=== PATIENT | female | born 2000 | race African-American/Black ===

== ENCOUNTER 2023-03-01 21:21 | Emergency (ER) | payer OTHER, SELFPAY ==
[2023-03-01 21:22] VITALS: BP 160/120; PULSE 100; RESP 16; TEMP 36.4; O2SAT 100; BMI 35.7
--- NOTE | 2023-03-01 21:54 | CT_ITS ---
INDICATION: Kidney Stone. Right upper quadrant pain, nausea and vomiting. EXAMINATION: CT ABDOMEN AND PELVIS WITHOUT CONTRAST TECHNIQUE: Helically acquired images were obtained of the abdomen and pelvis without IV contrast. 2-D reconstructions reviewed. A radiation dose optimization technique was used for this scan. IV Contrast dosage and agent: None. Oral contrast: None. COMPARISON: None. FINDINGS: LOWER CHEST: Mild basilar atelectatic changes. Borderline cardiomegaly. LIVER: Homogeneous. No discrete mass. GALLBLADDER AND BILIARY TREE: Several small calcified stones within gallbladder lumen and gallbladder neck. No significant biliary ductal dilation. PANCREAS: No discrete mass or peripancreatic edema. SPLEEN: Normal size without discrete mass. ADRENAL GLANDS: Unremarkable. KIDNEYS AND URETERS: Normal renal size and position. No perinephric edema or hydronephrosis. No discrete mass. No tract stones identified. PERITONEUM: No significant free peritoneal fluid. No free air detected. RETROPERITONEUM: No retroperitoneal mass or pathologic fluid collection. BOWEL: Normal appendix medial to cecum draped over right external iliac vessels. No bowel obstruction or significant bowel thickening. No focal inflammatory change. LYMPH NODES: No enlarged mesenteric or retroperitoneal lymph nodes. VESSELS: No acute findings. No abdominal aortic aneurysm. URINARY BLADDER: Circumferential urinary bladder wall thickening versus underdistention. REPRODUCTIVE ORGANS: Bilateral adnexal lesions containing macroscopic fat, soft tissue attenuation and punctate calcifications compatible with ovarian dermoids. Right ovarian dermoid measures 5.2 cm diameter and left ovarian dermoid 3.7 cm diameter. ABDOMINAL WALL: No acute findings or significant hernia defect. BONES: Intact with no suspicious osseous lesion. CT/Abdomen/Pelvis without Cont IMPRESSION: 1. Cholelithiasis. Recommend further evaluation with gallbladder ultrasound. 2. Bilateral ovarian dermoids, right larger than left. Recommend gynecologic quadrant follow-up for further management. 3. Borderline cardiomegaly. 4. Mild urinary bladder wall thickening versus underdistention. Correlate clinically for signs of cystitis. Electronically Signed: Antonio Lee MD at 22:52 EDT ,
[2023-03-01 22:03] LABS: Absolute Lymphocyte Count 4.56 X10^3/uL (0.83-4.51); Absolute Neutrophil Count 5.4 X10^3/uL (2.0-7.7); Basophil# 0.07 X10^3/uL; Basophil% 0.6 % (0-1); Eosinophil# 0.12 X10^3/uL; Hematocrit 27.2 % (37-47); Lymphocyte # 4.56 X10^3/ul (0.83-4.51); Lymphocyte % 39.5 % (19-41); Mean Corp Hgb Conc 33.1 g/dL (32-36); Mean Corpuscular Hgb 20.4 pg (27.0-32.0); Mean Corpuscular Volume 61.7 fL (81-99); Mean Platelet Vol. 9.3 fl (6.2-12.0); Monocyte# 1.39 X10^3/uL; NRBC Flagged by Analyzer 1.6 % (0-5); Neutrophil # 5.38 X10^3/uL (2.7-7.7); Neutrophil % 46.6 % (47-70); POSITIVE MORPHOLOGY YES; Platelet Count 458 K/mm3 (150-450); RBC Distribution Width CV 20.2 % (11.6-14.6); RBC Distribution Width SD 43.6 fl (35.1-43.9); Red Blood Count 4.41 M/mm3 (4.2-5.4); White Blood Count 11.6 K/mm3 (4.4-11.0)
[2023-03-01 22:04] LABS: Differential Indicated SCAN CRITERIA MET
[2023-03-01] MEDS: Ondansetron 4 MG/2 ML Vial IV (22:05)
[2023-03-01] MEDS: Ketorolac 30 MG/ML Syringe IV (22:05)
[2023-03-01 22:14] LABS: Internal QC Validated? YES +Cl - CLEAR BKGD; Pregnancy, Serum, hCG Quali. NEGATIVE Negative
[2023-03-01 22:15] LABS: Bacteria 0 SEEN /hpf (None Seen); Mucous, Urine 0 SEEN /hpf (<or=2+); Red Blood Cells-Urine 0 SEEN /hpf (0-5); White Blood Cells 0 SEEN /hpf (0-5)
--- NOTE | 2023-03-01 22:15 | EDS_ITS ---
HPI History of Present Illness Chief Complaint: Flank Pain Informant: patient Narrative Narrative: 22-year-old female presenting to the emergency department chief complaint of right flank pain. Patient states that last night around midnight she developed the symptoms right flank pain. States she took some Tylenol and went away and she went to bed. She woke this morning feeling okay and she went to classes. This evening after dinner she developed the symptoms again described as sharp and stabbing and constant. She had emesis [facility]. They were concerned about a kidney stone and sent her to emergency. Patient denies any fevers. She denies any urinary symptoms such as hematuria or frequency or dysuria. She no abdominal radiation of the pain. She states nothing seems to make it better or worse. No personal history of kidney stones. She states she has had a similar pain like this in the past and has gone undiagnosed but has not had that pain for several years. PFSH PFS Medical History Cochlear hearing loss PCOS (polycystic ovarian syndrome) Home Medications Secure 1 tab PO DAILY 03/01/23 [History Last Taken Unknown] hydrocodone-acetaminophen 5-325mg 5mg-325mg 1 tab PO Q6H PRN PRN Pain 3 days #12 TABLETS 03/01/23 [Rx Last Taken Unknown] ondansetron 4 mg disintegrating tablet 4 mg PO Q8H PRN PRN Nausea #10 tabs 03/01/23 [Rx Last Taken Unknown] Allergy/AdvReac Type Severity Reaction Status Date / Time No Known Allergies Allergy Verified 03/01/23 21:26 Family History no significant family his Surgical History no surgical history Social History housing: other current occupational status: student Smoking Status: Never smoker ROS ROS ED Constitutional Constitutional ED: Denies chills or weight loss Eyes Eyes: Denies change in vision or diplopia ENT ENT ED: Denies ear pain, rhinorrhea or sore throat Cardiovascular Cardiovascular: Denies chest pain, orthopnea, palpitations or racing heartbeat Respiratory/Chest Respiratory/Chest: Denies cough, dyspnea or orthopnea Gastrointestinal Gastrointestinal: Reports nausea and vomiting; Denies abdominal pain or diarrhea Genitourinary Genitourinary ED: Reports other Details: Right flank pain ; Denies dysuria, hematuria or urinary frequency Musculoskeletal Musculoskeletal: Denies arthralgias or myalgias Integumentary Denies abscess or rash Neurologic Neurologic: Denies headache(s) or weakness Psychiatric Psychiatric: Denies anxiety, depression, suicidal ideation or suicidal thoughts Endocrine Endocrinology: Denies polydipsia, polyphagia or polyuria Allergic/Immunologic Allergic/Immunologic ED: Denies mouth swelling, tongue swelling or urticaria EXAM Physical Exam Const Vital Signs: 03/01/23 21:22 Temperature 97.6 F L Temperature Source Temporal Pulse Rate 100 Respiratory Rate 16 Blood Pressure 160/120 H Blood Pressure Mean 133 Pulse Ox 100 Oxygen Delivery Method Room Air Positive well nourished, well developed and obese General Appearance ED: well developed Nutritional Appearance: obese HEENT Reports normocephalic, head/scalp atraumatic and moist mucous membranes Eyes PERRL and EOMs intact bilaterally Neck no lymphadenopathy, supple and no JVD Resp normal respiratory effort and clear to auscultation bilaterally Cardio regular rate, regular rhythm and no murmurs GI normal to inspection, nondistended, normoactive bowel sounds and non-tender Palpation: soft Back/Spine no CVA tenderness and normal ROM Extremity normal to inspection General Extremety ED: Negative for edema General Extremity: Negative for edema Neuro oriented x3 and CN's II-XII intact bilaterally Sensorium / Orientation: alert Motor Exam: strength 5/5 throughout Psych mental status grossly normal Mood & Affect: Negative for depressed or tearful Skin no rashes or lesions noted and no wounds MDM MDM MDM Narrative Medical decision making narrative: White count returns at 11.6. Liver lipase negative. test is negative. Urinalysis is negative. CT abdomen pelvis was obtained which demonstrates some cholelithiasis but no kidney stone or colitis noted. It was also noticed that the patient had cyst on ovaries. While the patient does not have any pelvic pain these findings were relayed to her and we recommend gynecologic follow-up. It is noted that she has a history of PCOS and is currently on oral contraceptive. I performed a bedside ultrasound which shows some gallstones near the vertex of the gallbladder. I do not appreciate any pericholecystic fluid. I do not see any gallstones in the neck of the gallbladder like was seen on the CT. She is not having any pain at this time. It is possible that the stones moved and that is explaining why she does not have the current pain. I think the patient should follow-up with general surgery. She also needs to follow-up with gynecology. Lab Data Attestation: I reviewed the patient's lab results. Labs: Laboratory Results - last 24 hr 03/01/23 03/01/23 21:41 22:07 WBC 11.6 H RBC 4.41 Hgb 9.0 L Hct 27.2 L MCV 61.7 L MCH 20.4 L MCHC 33.1 RDW Std Deviation 43.6 RDW Coeff of Ken 20.2 H Plt Count 458 H MPV 9.3 Immature Gran % (Auto) 0.300 Neut % (Auto) 46.6 L Lymph % (Auto) 39.5 [place] % (Auto) 12.0 H Eos % (Auto) 1.0 Baso % (Auto) 0.6 Absolute Neuts (auto) 5.4 Absolute Lymphs (auto) 4.56 H Nucleated RBC % 1.6 Differential Comment SCANNED Polychromasia RARE Anisocytosis 2+ Microcytosis 1+ Macrocytosis 1+ Target Cells 4+ Sodium 139 Potassium 3.3 L Chloride 107 Carbon Dioxide 26.0 Anion Gap 6 BUN 7 Creatinine 0.77 Estim Creat Clear Calc 104.87 Est GFR (MDRD) Af Amer 122 Est GFR (MDRD) Non-Af 101 BUN/Creatinine Ratio 9.1 L Glucose 97 Calcium 8.8 Total Bilirubin 0.60 Direct Bilirubin 0.19 AST 18 ALT 29 Alkaline Phosphatase 74 Total Protein 8.4 H Albumin 3.8 Globulin 4.6 H Lipase 28 Serum , Qual NEGATIVE Urine Color Yellow Urine Clarity Sl. Cloudy Urine pH 7.0 Ur Specific [place] 1.005 Urine Protein Negative Urine Glucose (UA) Normal Urine Ketones Negative Urine Occult Blood Negative Urine Nitrite Negative Urine Bilirubin Negative Urine Urobilinogen Normal Ur Leukocyte Esterase Negative Urine RBC 0 SEEN Urine WBC 0 SEEN Ur Squamous Epith Cells 0-5 SEEN Urine Bacteria 0 SEEN Urine Mucus 0 SEEN Radiography Diagnostic Testing: Clinical Impression(s) from Imaging Studies Abdomen/Pelvis CT 03/01/23 21:54 IMPRESSION: 1. Cholelithiasis. Recommend further evaluation with gallbladder ultrasound. 2. Bilateral ovarian dermoids, right larger than left. Recommend gynecologic quadrant follow-up for further management. 3. Borderline cardiomegaly. 4. Mild urinary bladder wall thickening versus underdistention. Correlate clinically for signs of cystitis. Electronically Signed: Antonio Lee MD at 22:52 EDT , Differential Diagnosis Abdominal Pain: Appendicitis, Cholecystitis, Pancreatitis, Bowel obstruction and UTI Discharge Plan Triage Chief Complaint: Flank Pain ED Provider: Sarbjit Kellogg Dx/Rx/DC Orders Clinical Impression: Vomiting, Cholelithiasis, Biliary colic, PCOS (polycystic ovarian syndrome) Instructions: ED Gallstones with Biliary Colic Prescriptions: New hydrocodone-acetaminophen [hydrocodone-acetaminophen] 5-325 mg tablet 1 tab PO Q6H PRN PRN (Reason: Pain) 3 Days Qty: 12 0RF ondansetron [ondansetron] 4 mg tablet,disintegrating 4 mg PO Q8H PRN PRN (Reason: Nausea) Qty: 10 0RF No Action Secure 1 tab PO DAILY Rx Instructions: Oral control that the patient gets from her home country. Primary Care Provider: Vamsi Alvarado Referrals: Vamsi Alvarado MD [Primary Care Provider] - As Needed Alton Kinsey MD [Med Staff - Active Staff] - As Needed (For gynecology care.) Brigid Carrillo MD [Med Staff - Active Staff] - As soon as possible (Please call to obtain surgical evaluation for ureteral stones) Disposition Disposition: Home, Self Care
[2023-03-01 22:17] LABS: Color, Urine Yellow (Yellow); Glucose, Dipstick Normal (Normal); Ketone-Dipstick Negative (Negative); Leukocyte Esterase-Dipstick Negative /ul (Negative); Nitrite-Dipstick Negative (Negative); Occult Blood-Urine Negative /ul (Negative); Protein-Dipstick Negative (Negative); Specific Gravity, Urine 1.005 (1.002-1.030); Urine Bilirubin Dipstick Negative (Negative); Urine Clarity Sl. Cloudy (Clear); Urine Urobilinogen Normal (Normal)
[2023-03-01 22:17] LABS: Anion Gap 6 (5-15); BUN 7 mg/dL (7-18); BUN/Creat Ratio 9.1 RATIO (10-20); Calcium,Total 8.8 mg/dL (8.5-10.1); Chloride 107 mmol/L (98-107); Creatinine, Serum 0.77 mg/dL (0.55-1.02); EST Glomerular Filtration Rate 101 mL/min (>60); Est Glom Filt Rate - Afr Amer 122 mL/min (>60); Estimated Creatinine Clearance 104.87 ml/min; Glucose 97 mg/dL (74-106); Potassium 3.3 mmol/L (3.5-5.1); Sodium Level 139 mmol/L (136-145)
[2023-03-01 22:23] LABS: Squamous Epithelial Cells - UA 0-5 SEEN /hpf (5-10)
[2023-03-01 22:33] LABS: Anisocytosis 2+; Differential Comment SCANNED
[2023-03-01 22:34] LABS: Target Cells 4+
[2023-03-01 22:35] LABS: Macrocytosis 1+; Microcytosis 1+
[2023-03-01 22:36] LABS: Polychromasia RARE
[2023-03-01 22:55] LABS: Lipase 28 U/L (13-75)
[2023-03-01 23:05] LABS: AST(SGOT) 18 U/L (15-37); Alanine Aminotransfer ALT/SGPT 29 U/L (13-56); Albumin, Serum 3.8 g/dL (3.2-5.0); Alkaline Phosphatase 74 U/L (45-117); Bilirubin, Direct 0.19 mg/dL (0.00-0.30); Globulin 4.6 g/dL (2.2-4.2); Protein, Total 8.4 g/dL (6.4-8.2)
[2023-03-01 23:14] VITALS: RESP 16
== END 2023-03-01 23:15 | disposition home or self-care (01) ==
PROVIDERS: Emergency Provider Emergency Medicine; PCP Family Medicine; Visit Provider Emergency Medicine
DX: K80.70 Calculus of gallbladder and bile duct without cholecystitis without obstruction (principal); E28.2 Polycystic ovarian syndrome; R11.10 Vomiting, unspecified; K80.20 Calculus of gallbladder without cholecystitis without obstruction; K80.50 Calculus of bile duct without cholangitis or cholecystitis without obstruction
CPT/HCPCS: 74176; 80048; 80076; 81001; 83690; 84703; 85025; 96374; 96375; 99283; A4216; J2405

== ENCOUNTER 2023-07-21 23:53 | Inpatient (IN) | payer OTHER, SELFPAY ==
[2023-07-21 23:54] VITALS: BP 128/90; PULSE 78; RESP 16; TEMP 36.9; O2SAT 98; BMI 35.1
[2023-07-22] VITALS (16 sets, daily range): BP systolic 115–134; BP diastolic 69–90; PULSE 64–106; RESP 16–20; TEMP 36.4–37.2; O2SAT 93–100; BMI 34.9
--- NOTE | 2023-07-22 00:10 | CT_ITS ---
INDICATION: RUQ Pain/Flank Pain. RUQ PAIN X 9 DAYS,ELEVATED WBC,PREG TEST WAS NEG,PT SEEN FOR SAME 03-01-23 AND DX WITH GALLSTONES AND UTERINE FIBROIDS COMPARISON: 03/01/[address] IV Contrast dosage and agent: 99 cc [id number]-370 IV. RADIATION DOSAGE (If Supplied By Facility): CTDIvol/DLP = 17.58 / 1140.58 mGy / mGycm A radiation dose optimization technique was used for this scan. FINDINGS: Contrast enhanced serial CT axial images through the abdomen and pelvis with coronal and sagittal reformatted series. PANCREAS: No peripancreatic fat stranding. BOWEL/MESENTERY: No dilated bowel loops. No significant free fluid. No free air. LIVER/STOMACH: Dilated common bile duct with intrahepatic biliary ductal dilatation and multiple apparently obstructing calculi within the distal common bile duct measuring up to 5 mm. Additional 4 mm calculus within the mid common bile duct. GALLBLADDER: Cholelithiasis at the gallbladder fundus again noted without pericholecystic fat stranding. APPENDIX: Normal caliber gas containing appendix. UTERUS/ADNEXA: Bilateral adnexal masses containing macroscopic fat and punctate calcifications, measuring up to 6 cm on the right and 5 cm on the left, most consistent with bilateral ovarian dermoids. URINARY COLLECTING SYSTEM/ KIDNEYS: No obstructing ureteral calculus. No significant renal parenchymal abnormality. LUNG BASES: Posteromedial right lung base subpleural scarring versus atelectasis again noted. BONES: Unremarkable for age. CT/Abdomen/Pelvis W IV Cont ONLY IMPRESSION: Apparent biliary obstruction secondary to multiple calculi within the mid and distal common bile duct, new from 5 months prior. Cholelithiasis at the gallbladder fundus again noted without pericholecystic fat stranding. Again noted apparent bilateral ovarian and adenoids measuring up to 6 cm on the right. Electronically Signed: Jaun Valle MD at 1:57 EST ,
--- NOTE | 2023-07-22 00:11 | EDS_ITS ---
HPI History of Present Illness Chief Complaint: Flank Pain Informant: patient Narrative Narrative: 23-year-old female presenting to the emergency room with a stated chief complaint of right flank pain (patient points to the lower mid axillary line on the right ribs and upper abdomen as the area that hurts) patient states it has been hurting for the past 9 days. She has been taking Tylenol which has been helping. Today she took some Indian that she had leftover from February 2023 when she was seen in the emergency department for right flank pain. At that time I saw her and she was diagnosed with biliary colic/gallstones and was advised to follow-up with surgery. She did not follow-up with surgery. She notes no vomiting today but has had nausea intermittently in the past week. She denies any urinary symptoms. No fever. No rashes. [facility] Medical History (Updated 07/22/23 @ 03:31 by Lorie To) Cochlear hearing loss PCOS (polycystic ovarian syndrome) Sickle cell anemia Home Medications Secure 1 tab PO DAILY 03/01/23 [History Last Taken Unknown] hydrocodone-acetaminophen 5-325mg 5mg-325mg 1 tab PO Q6H PRN PRN Pain 3 days #12 TABLETS 03/01/23 [Rx Last Taken Unknown] ondansetron 4 mg disintegrating tablet 4 mg PO Q8H PRN PRN Nausea #10 tabs 03/01/23 [Rx Last Taken Unknown] Allergy/AdvReac Type Severity Reaction Status Date / Time No Known Allergies Allergy Verified 07/21/23 23:56 Social History housing: other current occupational status: student Smoking Status: Never smoker ROS ROS ED Constitutional Constitutional ED: Denies chills, fever(s) or weight loss Eyes Eyes: Denies change in vision or diplopia ENT ENT ED: Denies ear pain, rhinorrhea or sore throat Cardiovascular Cardiovascular: Denies chest pain, orthopnea, palpitations or racing heartbeat Respiratory/Chest Respiratory/Chest: Denies cough, dyspnea or orthopnea Gastrointestinal Gastrointestinal: Reports abdominal pain and nausea; Denies diarrhea or vomiting Genitourinary Genitourinary ED: Denies dysuria, hematuria or urinary frequency Musculoskeletal Musculoskeletal: Reports other Details: Patient points to the right lower mid axillary line the lower chest as the area that hurts ; Denies arthralgias, back pain, myalgias or neck pain Integumentary Denies abscess or rash Neurologic Neurologic: Denies headache(s) or weakness Psychiatric Psychiatric: Denies anxiety, depression, suicidal ideation or suicidal thoughts Endocrine Endocrinology: Denies polydipsia, polyphagia or polyuria Allergic/Immunologic Allergic/Immunologic ED: Denies mouth swelling, tongue swelling or urticaria EXAM Physical Exam Const Vital Signs: 07/21/23 23:54 07/22/23 03:28 07/22/23 03:33 Temperature 98.4 F Temperature Source Temporal Pulse Rate 78 89 Respiratory Rate 16 16 16 Blood Pressure 128/90 H 132/85 H Blood Pressure Mean 102 100 Pulse Ox 98 99 Oxygen Delivery Method Room Air Room Air Positive well nourished, well developed and obese General Appearance ED: well developed Nutritional Appearance: obese HEENT Reports normocephalic, head/scalp atraumatic and moist mucous membranes Eyes PERRL and EOMs intact bilaterally Neck no lymphadenopathy, supple and no JVD Resp normal respiratory effort and clear to auscultation bilaterally Cardio regular rate, regular rhythm and no murmurs GI no masses; Negative for hepatosplenomegaly Inspection: Negative for abdominal distention Auscultation: normoactive bowel sounds Palpation: soft and tender RUQ; Negative for guarding or rebound tenderness present Back/Spine no CVA tenderness and normal ROM Extremity normal to inspection General Extremety ED: Negative for edema General Extremity: Negative for edema Neuro oriented x3 and CN's II-XII intact bilaterally Sensorium / Orientation: alert Motor Exam: strength 5/5 throughout Psych mental status grossly normal Mood & Affect: Negative for depressed or tearful Skin no rashes or lesions noted and no wounds MDM MDM MDM Narrative Medical decision making narrative: White count 11.2 with a hemoglobin 12.5 platelet count of 532. Total bilirubin elevated 1.9 with an AST of 85 ALT 114 alk phos of 130 lipase normal at 24. test is negative urinalysis is negative. At this hour I do not have gallbladder ultrasound readily available. I did do a CT of the pelvis and clearly shows a stone or 2 in the bile duct. There is some pericholecystic fluid. She is tender to palpation in the right upper quadrant. She was administered Zofran morphine and Zosyn. I spoke with surgery and gastroenterology. Plan will be to keep her in the department and obtain a formal gallbladder ultrasound and admit for surgery. Maintenance fluids ordered. NPO status discussed with nursing. History & Record Review Discussion w/independent historian: Patient Additional record(s) reviewed:: Prior ED visit and Prior labs Lab Data Attestation: I reviewed the patient's lab results. Labs: Laboratory Results - last 24 hr 07/22/23 07/22/23 00:19 00:20 WBC 11.2 H RBC 4.15 L Hgb 10.5 L Hct 29.6 L MCV 71.3 L MCH 25.3 L MCHC 35.5 RDW Std Deviation 44.3 H RDW Coeff of Ken 17.4 H Plt Count 532 H MPV 9.2 Immature Gran % (Auto) 0.400 Neut % (Auto) 60.7 Lymph % (Auto) 24.6 [place] % (Auto) 12.3 H Eos % (Auto) 1.5 Baso % (Auto) 0.5 Absolute Neuts (auto) 6.8 Absolute Lymphs (auto) 2.77 Nucleated RBC % 1.4 Sodium 139 Potassium 3.9 Chloride 109 H Carbon Dioxide 25.0 Anion Gap 5 BUN 7 Creatinine 0.85 Estim Creat Clear Calc 119.82 Est GFR (MDRD) Af Amer 108 Est GFR (MDRD) Non-Af 89 BUN/Creatinine Ratio 8.2 L Glucose 122 H Calcium 8.8 Total Bilirubin 1.90 H Direct Bilirubin 0.56 H AST 85 H ALT 114 H Alkaline Phosphatase 130 H Total Protein 8.2 Albumin 3.8 Globulin 4.4 H Lipase 24 Serum , Qual NEGATIVE Urine Color Yellow Urine Clarity Clear Urine pH 7.0 Ur Specific [place] 1.010 Urine Protein Negative Urine Glucose (UA) Normal Urine Ketones Negative Urine Occult Blood 10 H Urine Nitrite Negative Urine Bilirubin Negative Urine Urobilinogen 1 H Ur Leukocyte Esterase Negative Urine RBC 0 SEEN Urine WBC 0 SEEN Ur Squamous Epith Cells 0 SEEN Urine Bacteria 0 SEEN Urine Mucus 0 SEEN Radiography Diagnostic Testing: Clinical Impression(s) from Imaging Studies Abdomen/Pelvis CT 07/22/23 00:10 IMPRESSION: Apparent biliary obstruction secondary to multiple calculi within the mid and distal common bile duct, new from 5 months prior. Cholelithiasis at the gallbladder fundus again noted without pericholecystic fat stranding. Again noted apparent bilateral ovarian and adenoids measuring up to 6 cm on the right. Electronically Signed: Jaun Valle MD at 1:57 EST , Management Discussion w/another healthcare provider: Outside Production Inspector (Surgery (Dr. Hemphill) GI (Dr. Gonzales)) Discharge Plan Dx/Rx/DC Orders Clinical Impression: Abdominal pain, acute, Cholelithiasis with acute cholecystitis with biliary obstruction Disposition Disposition: Acute Care [facility]
[2023-07-22 00:23] LABS: Bacteria 0 SEEN /hpf (None Seen); Mucous, Urine 0 SEEN /hpf (<or=2+); Red Blood Cells-Urine 0 SEEN /hpf (0-5); Squamous Epithelial Cells - UA 0 SEEN /hpf (5-10); White Blood Cells 0 SEEN /hpf (0-5)
[2023-07-22 00:28] LABS: Absolute Lymphocyte Count 2.77 X10^3/uL (0.83-4.51); Absolute Neutrophil Count 6.8 X10^3/uL (2.0-7.7); Basophil# 0.06 X10^3/uL; Basophil% 0.5 % (0-1); Eosinophil# 0.17 X10^3/uL; Eosinophils% 1.5 % (0-5); Hematocrit 29.6 % (37-47); Hemoglobin 10.5 g/dL (12.0-15.0); Lymphocyte # 2.77 X10^3/ul (0.83-4.51); Lymphocyte % 24.6 % (19-41); Mean Corp Hgb Conc 35.5 g/dL (32-36); Mean Corpuscular Hgb 25.3 pg (27.0-32.0); Mean Corpuscular Volume 71.3 fL (81-99); Mean Platelet Vol. 9.2 fl (6.2-12.0); Monocyte# 1.38 X10^3/uL; Monocyte% 12.3 % (0-10); NRBC Flagged by Analyzer 1.4 % (0-5); Neutrophil # 6.82 X10^3/uL (2.7-7.7); Neutrophil % 60.7 % (47-70); Platelet Count 532 K/mm3 (150-450); RBC Distribution Width CV 17.4 % (11.6-14.6); RBC Distribution Width SD 44.3 fl (35.1-43.9); Red Blood Count 4.15 M/mm3 (4.2-5.4); White Blood Count 11.2 K/mm3 (4.4-11.0)
[2023-07-22 00:29] LABS: Color, Urine Yellow (Yellow); Glucose, Dipstick Normal (Normal); Ketone-Dipstick Negative (Negative); Leukocyte Esterase-Dipstick Negative /ul (Negative); Nitrite-Dipstick Negative (Negative); Occult Blood-Urine 10 /ul (Negative); Protein-Dipstick Negative (Negative); Urine Bilirubin Dipstick Negative (Negative); Urine Clarity Clear (Clear); Urine Urobilinogen 1 mg/dl (Normal)
[2023-07-22] MEDS: Ondansetron 4 MG/2 ML Vial IV (00:34)
[2023-07-22] MEDS: Morphine 4 MG/ML Syringe IV (00:35)
[2023-07-22 00:42] LABS: Internal QC Validated? YES +Cl - CLEAR BKGD; Pregnancy, Serum, hCG Quali. NEGATIVE Negative
[2023-07-22 00:49] LABS: AST(SGOT) 85 U/L (15-37); Alanine Aminotransfer ALT/SGPT 114 U/L (13-56); Albumin, Serum 3.8 g/dL (3.2-5.0); Alkaline Phosphatase 130 U/L (45-117); Anion Gap 5 (5-15); BUN 7 mg/dL (7-18); BUN/Creat Ratio 8.2 RATIO (10-20); Bilirubin, Direct 0.56 mg/dL (0.00-0.30); Calcium,Total 8.8 mg/dL (8.5-10.1); Chloride 109 mmol/L (98-107); Creatinine, Serum 0.85 mg/dL (0.55-1.02); EST Glomerular Filtration Rate 89 mL/min (>60); Est Glom Filt Rate - Afr Amer 108 mL/min (>60); Estimated Creatinine Clearance 119.82 ml/min; Globulin 4.4 g/dL (2.2-4.2); Glucose 122 mg/dL (74-106); Lipase 24 U/L (13-75); Potassium 3.9 mmol/L (3.5-5.1); Protein, Total 8.2 g/dL (6.4-8.2); Sodium Level 139 mmol/L (136-145)
[2023-07-22] MEDS: Piperacil/Tazobactam 4.5 GM in 0.9% Normal Saline (100mL MB+) 100 ML IV (02:20)
--- NOTE | 2023-07-22 02:27 | US_ITS ---
EXAM: US ABDOMEN LIMITED, RIGHT UPPER QUADRANT CLINICAL INDICATION: biliary obstruction TECHNIQUE: Real-time ultrasound of the right upper quadrant with image documentation. COMPARISON: CT abdomen and pelvis from same date FINDINGS: LIVER: Intrahepatic bile duct dilation. Increased echogenicity of the hepatic parenchyma. GALLBLADDER: Multiple small shadowing stones in the gallbladder. No gallbladder wall thickening is demonstrated. No pericholecystic fluid. Negative sonographic Cohen''s sign. COMMON BILE DUCT: The common bile duct is dilated up to 9 mm, with at least one shadowing stone measuring about 6 mm. PANCREAS: Unremarkable as visualized. No focal abnormality is demonstrated in the pancreas. No pancreatic ductal dilatation. RIGHT KIDNEY: Unremarkable. There is no hydronephrosis. No shadowing calculus. No focal lesion or perinephric collection is demonstrated. US/Gallbladder IMPRESSION: 1. The common bile duct is dilated up to 9 mm, with at least one shadowing stone measuring about 6 mm, consistent with choledocholithiasis. 2. Multiple small shadowing stones in the gallbladder. No sonographic evidence of acute cholecystitis. Electronically Signed: Boston Chapa MD at 7:32 EST ,
[2023-07-22] MEDS: 0.9% Normal Saline (1000mL) 1,000 ML 150 ML IV (05:09)
--- NOTE | 2023-07-22 08:08 | PCM.HP.STD ---
HPI - General General Date of Admission: 07/22/23 HPI Narrative VIANEY DOLL, is a 23 F who presents to [facility] with complaints of abdominal pain. She shares the pain occurred in her right upper quadrant last evening but appears to have remitted. She confirms this is the same pain that she experienced in the latter half of last year when she was evaluated for the same issue at this emergency department. Patient's ER workup is notable for CBC with mild leukocytosis and CT imaging that shows a dilated common bile duct as well as a obstructing common bile duct stone consistent with diagnosis of choledocholithiasis. Reflex abdominal ultrasound was requested and confirms the above without any secondary evidence for cholecystitis. Patient has a history of sickle cell trait but shares that she is the SC genotype and has never required treatment for this issue. She also has a diagnosis of PCOS and is hearing impaired with a cochlear implant. She has never undergone surgery of her abdomen. 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 [facility] Medical History (Updated 07/22/23 @ 08:[address] Zeferino Hemphill MD) Cochlear hearing loss PCOS (polycystic ovarian syndrome) Sickle cell anemia Home Medications Secure 1 tab PO DAILY 03/01/23 [History Last Taken Unknown] hydrocodone-acetaminophen 5-325mg 5mg-325mg 1 tab PO Q6H PRN PRN Pain 3 days #12 TABLETS 03/01/23 [Rx Last Taken Unknown] ondansetron 4 mg disintegrating tablet 4 mg PO Q8H PRN PRN Nausea #10 tabs 03/01/23 [Rx Last Taken Unknown] Allergy/AdvReac Type Severity Reaction Status Date / Time No Known Allergies Allergy Verified 07/21/23 23:56 Social History housing: other current occupational status: student Smoking Status: Never smoker Vital Signs Vital Signs Vital Signs: 07/21/23 23:54 07/22/23 03:28 07/22/23 03:33 Temperature 98.4 F Temperature Source Temporal Pulse Rate 78 89 Respiratory Rate 16 16 16 Blood Pressure 128/90 H 132/85 H Blood Pressure Mean 102 100 Pulse Ox 98 99 Oxygen Delivery Method Room Air Room Air 07/22/23 05:10 Temperature Temperature Source Pulse Rate 87 Respiratory Rate 18 Blood Pressure Blood Pressure Mean Pulse Ox 98 Oxygen Delivery Method Room Air Weight Weight: 211 lb 1 oz Body Mass Index (BMI) 35.1 Physical Exam Const alert, oriented x3, no apparent distress and well nourished General Appearance: cooperative and well developed Eyes Eyes Narrative: No scleral icterus appreciated Resp normal respiratory effort GI GI Narrative: Obese, no scars, nondistended, soft, nontender to palpation x 4 quadrants. Negative Cohen's exam. Results Lab / Micro Data 07/22/23 00:20 07/22/23 00:20 Labs: Laboratory Results - last 24 hr 07/22/23 00:19: Urine Color Yellow, Urine Clarity Clear, Urine pH 7.0, Ur Specific [place] 1.010, Urine Protein Negative, Urine Glucose (UA) Normal, Urine Ketones Negative, Urine Occult Blood 10 H, Urine Nitrite Negative, Urine Bilirubin Negative, Urine Urobilinogen 1 H, Ur Leukocyte Esterase Negative, Urine RBC 0 SEEN, Urine WBC 0 SEEN, Ur Squamous Epith Cells 0 SEEN, Urine Bacteria 0 SEEN, Urine Mucus 0 SEEN 07/22/23 00:20: WBC 11.2 H, RBC 4.15 L, Hgb 10.5 L, Hct 29.6 L, MCV 71.3 L, MCH 25.3 L, MCHC 35.5, RDW Std Deviation 44.3 H, RDW Coeff of Ken 17.4 H, Plt Count 532 H, MPV 9.2, Immature Gran % (Auto) 0.400, Neut % (Auto) 60.7, Lymph % (Auto) 24.6, [place] % (Auto) 12.3 H, Eos % (Auto) 1.5, Baso % (Auto) 0.5, Absolute Neuts (auto) 6.8, Absolute Lymphs (auto) 2.77, Nucleated RBC % 1.4, Sodium 139, Potassium 3.9, Chloride 109 H, Carbon Dioxide 25.0, Anion Gap 5, BUN 7, Creatinine 0.85, Estim Creat Clear Calc 119.82, Est GFR (MDRD) Af Amer 108, Est GFR (MDRD) Non-Af 89, BUN/Creatinine Ratio 8.2 L, Glucose 122 H, Calcium 8.8, Total Bilirubin 1.90 H, Direct Bilirubin 0.56 H, AST 85 H, ALT 114 H, Alkaline Phosphatase 130 H, Total Protein 8.2, Albumin 3.8, Globulin 4.4 H, Lipase 24, Serum , Qual NEGATIVE Imaging Radiology Impression Abdomen/Pelvis CT 07/22/23 00:10 IMPRESSION: Apparent biliary obstruction secondary to multiple calculi within the mid and distal common bile duct, new from 5 months prior. Cholelithiasis at the gallbladder fundus again noted without pericholecystic fat stranding. Again noted apparent bilateral ovarian and adenoids measuring up to 6 cm on the right. Electronically Signed: Jaun Valle MD at 1:57 EST , Gallbladder Ultrasound 07/22/23 02:27 IMPRESSION: 1. The common bile duct is dilated up to 9 mm, with at least one shadowing stone measuring about 6 mm, consistent with choledocholithiasis. 2. Multiple small shadowing stones in the gallbladder. No sonographic evidence of acute cholecystitis. Electronically Signed: Boston Chapa MD at 7:32 EST , Assessment & Plan Assessment/Plan (1) Cholelithiasis with choledocholithiasis: PLAN: This is a 23-year-old female with additional history of as per HPI who presents with signs and symptoms of choledocholithiasis. She reports initial pain but on exam for me she is completely benign. Further, her ultrasound demonstrates no secondary evidence of cholecystitis but choledocholithiasis is visualized both on this study and her prior CT imaging. I thus discussed with her the pathophysiology involved and recommended inpatient admission with consultation to gastroenterology for ERCP followed by plans to proceed with cholecystectomy to mitigate her risk for recurrence. She expresses understanding of the discussion and agreement with the treatment plan recommendation. Antibiotics have already been administered by emergency medicine. Coordination of treatment plan ongoing with gastroenterology. Charges/Coding Visit Charges Inpatient E&M: 69579 Init Hosp L2
--- NOTE | 2023-07-22 11:00 | EX.PCM.CON.G ---
HPI Consult Data Date of Consult: 07/22/23 HPI Narrative Reason for Consultation: Choledocholithiasis HPI Narrative: VIANEY DOLL, is a 23-year-old female presenting to the emergency room with a stated chief complaint of right flank pain. She points to the lower mid axillary line on the right ribs and upper abdomen as the area that hurts. She states it has been hurting for the past 9 days. She has been taking Tylenol which has been helping. Today she took some [place] that she had leftover from February 2023 when she was seen in the emergency department for right flank pain. At that time I saw her and she was diagnosed with biliary colic/gallstones and was advised to follow-up with surgery. She did not follow-up with surgery. She notes no vomiting today but has had nausea intermittently in the past week. She denies any urinary symptoms. No fever. No rashes. She was afebrile and nontoxic in the ED. Vital signs show blood pressure of 110/60 with a heart rate of 100-1 15, respiratory rate of 18 and temperature of 97.9 and satting 100% on room air 07/22/23 00:19: Urine Color Yellow, Urine Clarity Clear, Urine pH 7.0, Ur Specific [place] 1.010, Urine Protein Negative, Urine Glucose (UA) Normal, Urine Ketones Negative, Urine Occult Blood 10 H, Urine Nitrite Negative, Urine Bilirubin Negative, Urine Urobilinogen 1 H, Ur Leukocyte Esterase Negative, Urine RBC 0 SEEN, Urine WBC 0 SEEN, Ur Squamous Epith Cells 0 SEEN, Urine Bacteria 0 SEEN, Urine Mucus 0 SEEN 07/22/23 00:20: WBC 11.2 H, RBC 4.15 L, Hgb 10.5 L, Hct 29.6 L, MCV 71.3 L, MCH 25.3 L, MCHC 35.5, RDW Std Deviation 44.3 H, RDW Coeff of Ken 17.4 H, Plt Count 532 H, MPV 9.2, Immature Gran % (Auto) 0.400, Neut % (Auto) 60.7, Lymph % (Auto) 24.6, [place] % (Auto) 12.3 H, Eos % (Auto) 1.5, Baso % (Auto) 0.5, Absolute Neuts (auto) 6.8, Absolute Lymphs (auto) 2.77, Nucleated RBC % 1.4, Sodium 139, Potassium 3.9, Chloride 109 H, Carbon Dioxide 25.0, Anion Gap 5, BUN 7, Creatinine 0.85, Estim Creat Clear Calc 119.82, Est GFR (MDRD) Af Amer 108, Est GFR (MDRD) Non-Af 89, BUN/Creatinine Ratio 8.2 L, Glucose 122 H, Calcium 8.8, Total Bilirubin 1.90 H, Direct Bilirubin 0.56 H, AST 85 H, ALT 114 H, Alkaline Phosphatase 130 H, Total Protein 8.2, Albumin 3.8, Globulin 4.4 H, Lipase 24, Serum , Qual NEGATIVE CT scan abdomen pelvis: Apparent biliary obstruction secondary to multiple calculi within the mid and distal common bile duct, new from 5 months prior.Cholelithiasis at the gallbladder fundus again noted without pericholecystic fat stranding. [facility] Medical History Cochlear hearing loss PCOS (polycystic ovarian syndrome) Sickle cell anemia Home Medications Secure 1 tab PO DAILY control 03/01/23 [History Last Taken 07/21/23] hydrocodone-acetaminophen 5-325mg 5mg-325mg 1 tab PO Q6H PRN PRN Pain 3 days #12 TABLETS 03/01/23 [Rx Last Taken Unknown] Allergy/AdvReac Type Severity Reaction Status Date / Time No Known Allergies Allergy Verified 07/22/23 13:09 Social History housing: other current occupational status: student Smoking Status: Never smoker ROS Review of Systems ROS Unobtainable: other Constitutional Constitutional: Denies fatigue, fever(s), poor appetite, weight gain or weight loss ENT HEENT: Denies mouth lesions Cardiovascular Cardiovascular: Denies abdominal bloating, abdominal edema or abdominal pain Respiratory/Chest Respiratory/Chest: Denies change in mental status, change in phlegm color, chest congestion or chest tightness Gastrointestinal Gastrointestinal: Denies belching, bloating, change in bowel habits, change in stool character, chewing difficulty, coffee ground emesis, constipation, cramping, diarrhea, dyspepsia, dysphagia, early satiety, excessive flatus, fecal incontinence, heartburn, hematemesis, hematochezia, hemorrhoids, loose stools, melena, nausea, odynophagia, rectal bleeding, tenesmus, vomiting or weight changes Genitourinary Genitourinary: Denies abdominal discomfort, burning urination or itching Musculoskeletal Musculoskeletal: Reports as per HPI; Denies muscle weakness or myalgias Integumentary Integumentary: Denies jaundice Neurologic Neurologic: Denies lack of coordination or weakness Psychiatric Psychiatric: Denies confusion, depression, memory loss, mood swings, paranoia or suicidal ideation Endocrine Endocrinology: Denies systems reviewed and no addt'l complaints, except as documented Hematologic/Lymphatic Hematologic/Lymphatic: Denies anemia, easy bleeding, easy bruising or lymphadenopathy Allergic/Immunologic Allergic/Immunologic: Denies systems reviewed and no addt'l complaints, except as documented Physical Exam Const alert, oriented x3, no apparent distress and well nourished General Appearance: cooperative and well developed Eyes Eyes Narrative: No scleral icterus appreciated Resp normal respiratory effort GI GI Narrative: Obese, no scars, nondistended, soft, nontender to palpation x 4 quadrants. Negative Cohen's exam. Lab / Micro Data 07/22/23 00:20 07/22/23 00:20 Labs: Laboratory Results - last 24 hr 07/22/23 00:19: Urine Color Yellow, Urine Clarity Clear, Urine pH 7.0, Ur Specific [place] 1.010, Urine Protein Negative, Urine Glucose (UA) Normal, Urine Ketones Negative, Urine Occult Blood 10 H, Urine Nitrite Negative, Urine Bilirubin Negative, Urine Urobilinogen 1 H, Ur Leukocyte Esterase Negative, Urine RBC 0 SEEN, Urine WBC 0 SEEN, Ur Squamous Epith Cells 0 SEEN, Urine Bacteria 0 SEEN, Urine Mucus 0 SEEN 07/22/23 00:20: WBC 11.2 H, RBC 4.15 L, Hgb 10.5 L, Hct 29.6 L, MCV 71.3 L, MCH 25.3 L, MCHC 35.5, RDW Std Deviation 44.3 H, RDW Coeff of Ken 17.4 H, Plt Count 532 H, MPV 9.2, Immature Gran % (Auto) 0.400, Neut % (Auto) 60.7, Lymph % (Auto) 24.6, [place] % (Auto) 12.3 H, Eos % (Auto) 1.5, Baso % (Auto) 0.5, Absolute Neuts (auto) 6.8, Absolute Lymphs (auto) 2.77, Nucleated RBC % 1.4, Sodium 139, Potassium 3.9, Chloride 109 H, Carbon Dioxide 25.0, Anion Gap 5, BUN 7, Creatinine 0.85, Estim Creat Clear Calc 119.82, Est GFR (MDRD) Af Amer 108, Est GFR (MDRD) Non-Af 89, BUN/Creatinine Ratio 8.2 L, Glucose 122 H, Calcium 8.8, Total Bilirubin 1.90 H, Direct Bilirubin 0.56 H, AST 85 H, ALT 114 H, Alkaline Phosphatase 130 H, Total Protein 8.2, Albumin 3.8, Globulin 4.4 H, Lipase 24, Serum , Qual NEGATIVE Imaging Radiology Impression Abdomen/Pelvis CT 07/22/23 00:10 IMPRESSION: Apparent biliary obstruction secondary to multiple calculi within the mid and distal common bile duct, new from 5 months prior. Cholelithiasis at the gallbladder fundus again noted without pericholecystic fat stranding. Again noted apparent bilateral ovarian and adenoids measuring up to 6 cm on the right. Electronically Signed: Jaun Valle MD at 1:57 EST , Gallbladder Ultrasound 07/22/23 02:27 IMPRESSION: 1. The common bile duct is dilated up to 9 mm, with at least one shadowing stone measuring about 6 mm, consistent with choledocholithiasis. 2. Multiple small shadowing stones in the gallbladder. No sonographic evidence of acute cholecystitis. Electronically Signed: Boston Chapa MD at 7:32 EST , Assessment & Plan Assessment/Plan (1) Cholelithiasis with choledocholithiasis: PLAN: I suspect that she has sickle cell anemia or sickle cell trait. Therefore I suspect that she has bilirubin stone disease. It is a common hemoglobinopathy in [place] which can affect multiple organ systems in the body. Within the digestive tract, the hepatobiliary system is most commonly affected in SCD. The manifestations range from benign hyperbilirubinemia to overt liver failure, with the spectrum of acute clinical presentations often referred to as ?sickle cell hepatopathy?. This is an umbrella term referring to liver dysfunction and hyperbilirubinemia due to intrahepatic sickling process during SCD crisis leading to ischemia, sequestration and cholestasis. She will undergo ERCP with evaluation of her hepatobiliary system for therapeutic purposes removed and stones prior to cholecystectomy. She was explained alternatives, risk, benefits including outstanding bleeding, infection, sepsis, perforation, need for mergers and . She will have an ASA of 3. Charges/Coding Visit Charges Inpatient E&M: 12619 Init Hosp L3
[2023-07-22] MEDS: 0.9% Normal Saline (1000mL) 1,000 ML 125 ML IV ×2 (11:41→18:58)
[2023-07-22] MEDS: 0.9% Normal Saline (1000mL) 1,000 ML 15 ML IV (13:20)
[2023-07-22] MEDS: Piperacil/Tazobactam 3.375 GM in 0.9% Normal Saline (50mL MB+) 50 ML IV (13:46)
--- NOTE | 2023-07-22 13:50 | GALL_PTH ---
PATHOLOGY RESULTS PATIENT: VIANEY DOLL LOC: MS3 U#:[id number] AGE/SX: 23/ ROOM: MS308 RE07/22/[address]: Dr. Zeferino Hemphill MD : 2000 BED: 1 DIS: 07/24/2023 SPEC #: [id number] RECD: 07/25/23 07:22 STATUS: ANGELA MONICA #: [id number] DEMETRA: 07/22/23 13:[address]: Zeferino Hemphill DEPT: SURGICAL PATHOLOGY RECD BY: Angelica Paris ENTERED: 07/25/23 07:22 SP TYPE: COREY LEÓN DR: No Primary Care Phys Tissues: Gallbladder, NOS Procedures: Surgery Specimen Level III HEADER OPERATION: Laparoscopic cholecystectomy with IOC PRE-OP DIAGNOSIS: Cholelithiasis with choledocholithiasis TISSUE SUBMITTED: Gallbladder MICROSCOPIC DIAGNOSIS Gallbladder, cholecystectomy: Chronic cholecystitis and cholelithiasis. AM:fernando 07/26/2023 MICROSCOPIC DESCRIPTION Slides are reviewed. GROSS DESCRIPTION Received is one container labeled with the patient's name and designated gallbladder. The specimen consists of a gallbladder measuring 7.5 cm in length and up to 3.0 cm in diameter. The external surface is pink-asif, smooth and glistening for the most part. Focally it is granular, hemorrhagic and contains cautery artifact. The gallbladder contains green-yellow mucoid bile and multiple brown, multifaceted to irregular stones measuring in aggregate 2.0 x 2.0 x 0.5 cm and <0.1 to 0.8 cm in greatest dimension. The mucosa is bile-stained and without any mass lesions. The gallbladder wall measures up to 0.3 cm in thickness. Loader Technician sections from the gallbladder and the cystic duct are submitted in one cassette. / SJ:fernando 07/25/2023 TC:3 CPT: 53136
--- NOTE | 2023-07-22 15:15 | RAD_ITS ---
STUDY: ERCP. REASON FOR EXAM: Female, 23 years old. ABD PAIN FLUOROSCOPY TIME (if supplied): ( 13.4 seconds ) minutes/seconds. 3.29 mGy TECHNIQUE: An ERCP was performed by the school resource officer. Imaging was provided. COMPARISON: Comparison is made with prior study done earlier in the day. FINDINGS: A common bile duct stent was placed. Once again, multiple small filling defects are seen in the distal portion of the common bile duct. RAD/ERCP Biliary/Pancreas IMPRESSION: Status post placement of a common bile duct stent. Electronically Signed: Rene Gutierrez MD at 9:03 [facility] ,
[2023-07-22] MEDS: Lactated Ringers 1,000 ML 15 ML IV (15:35)
--- NOTE | 2023-07-22 15:40 | OP.CCLET_ITS ---
07/22/2023 No Primary Care Physician Re : ERCP procedure for Joyce Bonilla Dear Care Physician This procedure was performed on Saturday, July 22, 2023. My impressions and recommendations are as follows: Impressions : - The entire main bile duct was dilated, with a stone causing an obstruction. - Choledocholithiasis was found. Complete removal was accomplished by biliary sphincterotomy and balloon extraction. - A biliary sphincterotomy was performed. - The biliary tree was swept. Recommendations : My findings are described in the full procedure note, which is enclosed. If I can be of further assistance, please feel free to contact me at . Sincerely, Edouard Gonzales, 07/22/2023 3:40:08 PM This report has been signed electronically.
--- NOTE | 2023-07-22 15:40 | OP.ERCP_ITS ---
Patient Name: Joyce Bonilla Procedure Date: 07/22/2023 2:19 PM Date of : 2000 Age: 23 Procedure: ERCP Indications: Bile duct stone(s) Providers: Edouard Gonzales DO Medicines: Monitored Anesthesia Care Patient Profile: This is a 23 year old female. Refer to note in patient chart for documentation of history and physical. Patient has symptoms of acute right upper quadrant abdominal pain and acute jaundice. This patient has no history of previous ERCP. This patient has no history of surgical alteration of the upper digestive tract anatomy. Complications: No immediate complications. Procedure: Pre-Anesthesia Assessment: - Prior to the procedure, a History and Physical was performed, and patient medications and allergies were reviewed. The patient is competent. The risks and benefits of the procedure and the sedation options and risks were discussed with the patient. All questions were answered and informed consent was obtained. Patient identification and proposed procedure were verified by the physician in the pre-procedure area. Mental Status Examination: alert and oriented. Airway Examination: normal oropharyngeal airway and neck mobility. Respiratory Examination: clear to auscultation. CV Examination: normal. Prophylactic Antibiotics: The patient does not require prophylactic antibiotics. Prior Anticoagulants: The patient has taken no anticoagulant or antiplatelet agents. ASA Grade Assessment: II - A patient with mild systemic disease. After reviewing the risks and benefits, the patient was deemed in satisfactory condition to undergo the procedure. The anesthesia plan was to use monitored anesthesia care (MAC). Immediately prior to administration of medications, the patient was re-assessed for adequacy to receive sedatives. The heart rate, respiratory rate, oxygen saturations, blood pressure, adequacy of pulmonary ventilation, and response to care were monitored throughout the procedure. The physical status of the patient was re-assessed after the procedure. After obtaining informed consent, the scope was passed under direct vision. Throughout the procedure, the patient's blood pressure, pulse, and oxygen saturations were monitored continuously. The Duodenoscope was introduced through the mouth, and advanced to the duodenum and used to inject contrast into the bile duct. The ERCP was accomplished without difficulty. The patient tolerated the procedure well. Scope In: 3:08:45 PM Scope Out: 3:32:13 PM Total Procedure Duration Time 0 hours 23 minutes 28 seconds Findings: The trucker hand film was normal. The esophagus was successfully intubated under direct vision. The scope was advanced to a normal major papilla in the descending duodenum without detailed examination of the pharynx, larynx and associated structures, and upper GI tract. The upper GI tract was grossly normal. The bile duct was deeply cannulated with the short-nosed traction sphincterotome. Contrast was injected. I personally interpreted the bile duct images. There was brisk flow of contrast through the ducts. Image quality was excellent. Contrast extended to the entire biliary tree. Opacification of the entire biliary tree except for the cystic duct and gallbladder was successful. The maximum diameter of the ducts was 10 mm. The entire biliary tree except for the cystic duct and gallbladder and lower third of the main bile duct contained multiple stones, the largest of which was 6 mm in diameter. The main bile duct was diffusely dilated, with a stone causing an obstruction. The largest diameter was 10 mm. A straight Roadrunner wire was passed into the biliary tree. A 5 mm biliary sphincterotomy was made with a monofilament traction (standard) sphincterotome using ERBE electrocautery. There was no post-sphincterotomy bleeding. The biliary tree was swept with a 12 mm balloon starting at the bifurcation. Sludge was swept from the duct. All stones were removed. One 10 Fr by 5 cm temporary stent was placed 5 cm into the common bile duct. Bile flowed through the stent. The stent was in good position. Impression: - The entire main bile duct was dilated, with a stone causing an obstruction. - Choledocholithiasis was found. Complete removal was accomplished by biliary sphincterotomy and balloon extraction. - A biliary sphincterotomy was performed. - The biliary tree was swept. Procedure Code(s): --- Professional --- 12361, Endoscopic retrograde cholangiopancreatography (ERCP); with placement of endoscopic stent into biliary or pancreatic duct, including pre- and post-dilation and guide wire passage, when performed, including sphincterotomy, when performed, each stent [id number], Endoscopic retrograde cholangiopancreatography (ERCP); with removal of calculi/debris from biliary/pancreatic duct(s) 04410, 26, Endoscopic catheterization of the biliary ductal system, radiological supervision and interpretation CPT copyright 2021 [employer]. All rights reserved. The codes documented in this report are preliminary and upon data coder operator review may be revised to meet current compliance requirements. Edouard Gonzales DO 07/22/2023 3:40:08 PM This report has been signed electronically. Number of Addenda: 0 Note Initiated On: 07/22/2023 2:19 PM
--- NOTE | 2023-07-22 16:10 | RAD_ITS ---
CLINICAL HISTORY: Female, 23 years old. Abdominal pain PROCEDURE: CHOLANGIOGRAM - intraoperative FLUOROSCOPY TIME (if supplied): (0:41) minutes/seconds Images obtained: 121 TECHNIQUE: Fluoroscopy of the abdomen was utilized in rotary slicing machine operator during an intraoperative cholangiogram into cine runs are submitted for interpretation. FINDINGS: A cannula seen in the cystic duct remnant. Contrast is seen throughout the biliary tree with spillage through the ampulla into the duodenum. There are multiple round filling defects within the common bile duct worrisome for common bile duct stones. Alternatively these could represent air bubbles. RAD/Cholangiogram/ O R,Initial IMPRESSION: Suspect choledocholithiasis. Electronically Signed: Tenzin Horton MD at 17:37 EST ,
[2023-07-22] MEDS: Bupivacaine 0.25% 30 ML Vial (17:23)
--- NOTE | 2023-07-22 17:25 | PCM.OPRPT ---
Report of Operation Date of Procedure: 07/22/23 Pre-Operative Diagnosis: Choledocholithiasis with cholelithiasis Post-Operative Diagnosis: Choledocholithiasis with acute cholecystitis Surgery/Procedure Performed:: Laparoscopic cholecystectomy with intraoperative cholangiogram Description of Surgical Findings:: ? Single, dilated cystic duct with anterior and posterior cystic arteries ? Cholangiogram showing filling defects in the distal cystic duct and ultimately entered the common bile duct above patient's common bile duct stent but were nonobstructive Surgeon: Zeferino Hemphill Type of Anesthesia: General/Supplemental Anesthesiologist: Juan A Win Specimen's removed: Gallbladder Estimated Blood Loss (mL): 20 Description of Procedure: After proper identification in the preoperative holding area the patient was brought to the operating room where she was positioned supine on the operating room table. Preoperatively SCDs were connected and antibiotics were administered. General anesthesia was then induced. Patient then underwent ERCP with Dr. Gonzales before the positioned supine for our portion of the case. Patient's abdomen was prepped and draped in usual sterile fashion. A formal timeout was conducted to confirm both patient and the procedure. Procedure was begun with a supraumbilical incision which was extended deeply down to the level of the fascia. The fascia was elevated and incised, as well as the peritoneum. A finger sweep was performed to ensure there were no underlying adhesions and a 12 mm balloon trocar was inserted. Pneumoperitoneum was established at 15 mmHg. 3 additional trocars were placed in the epigastrium and in the right upper quadrant (3 x 5 mm). (Later in the procedure the patient's 5 mm epigastric port was upsized to a 12 mm port to facilitate passage of a larger clip hospital insurance representative for patient's larger cystic duct). Inspection of the peritoneum revealed no inadvertent injury to the viscera below. The gallbladder was visualized with a mild degree of inflammation and there was omentum that was adherent to the lateral aspect of the gallbladder body. This omental attachment was bluntly taken down and electrocautery was used at the inferior aspect of the attachments to avoid inadvertent rent to the liver capsule. The gallbladder fundus was then grasped and elevated cephalad. Then, using careful dissection the peritoneum was opened and the structures of the hepatocystic triangle were delineated. Once the critical view of safety was obtained, the cystic duct was singly clipped and partially divided with a ductotomy. The proximal duct was milked of debris until there was backflow of bile. Using an Daniel Supai clamp, a cholangiocatheter was fed into the proximal segment of the cystic duct and clamped into place. Under fluoroscopy a cholangiogram was then obtained showing a standard length cystic duct that contained several filling defects which were partially obstructing flowing into a common bile duct stent with unobstructed antegrade flow of contrast into the duodenum. There was also retrograde flow through the common hepatic duct into the right and left hepatic ducts. Wanting to reassess the degree of obstruction I repeated the cholangiogram and this time found the probable stones had migrated to the upper limits of the patient's common bile duct stent but remained nonobstructive. Satisfied that the stent was draining and having no means immediately available to clear these remaining stones, the cholangiocatheter was withdrawn and the proximal cystic duct was sealed with clips and the cystic duct was completely transected. The same process was used for the cystic artery. A posterior cystic artery was also clipped and divided. The gallbladder was then removed from the gallbladder fossa with the use of electrocautery. During this removal and inadvertent rent was made in the gallbladder wall resulting in local spillage of bile which was promptly suctioned from the peritoneum using the laparoscopic suction crane ladle person device. Selective electrocautery was used to obtain hemostasis in the gallbladder fossa. The gallbladder was placed in an Endo Catch bag and removed from the peritoneum. Morison's pouch was irrigated and the effluent was suctioned free of the peritoneum. Hemostasis was again confirmed in the gallbladder fossa. The port sites of the subxiphoid and supraumbilical positions were closed using #1 PDS with a Jose Alvarado suture passer under laparoscopic visualization. Pneumoperitoneum was evacuated and the fascia of the 12 mm port sites was closed with #1Vicryl in a [id number] fashion. A total of 30 mL of anesthetic was injected at the port sites for postoperative pain control. The skin of each port site was then closed in subcuticular fashion using 4-0 Monocryl. Steri-Strips and bandages were applied as dressings. Patient tolerated the procedure well without any apparent complications. On emergence from their anesthetic the patient was taken to PACU for ongoing recovery. Grafts/Implants Used: None Complications None Admit VTE Documentation VTE Mechan Device Prophylaxis: SCD's Procedures Digestive 40xxx-49xxx: 63406 Laparo cholecystectomy/graph
--- NOTE | 2023-07-22 18:20 | NURSING ---
[facility] J[facility] Marion Lange came in to check on pt. Pt was still down in surgery. upon d/c pt can get a hold of [employer] to help with pt being d/c from hospital, also able to get her clothes from her dorm. If cannot get a hold of them can call Marion. [facility] also [facility] - [facility] are open / - can stay there for the next few days while she recovers and is able to help with getting class work.
[2023-07-22] MEDS: Acetaminophen 500 MG Tablet PO (19:59)
[2023-07-22] MEDS: oxyCODONE 5 MG Tablet PO (20:00)
[2023-07-22] MEDS: Ibuprofen 400 MG Tablet PO (23:21)
[2023-07-23] VITALS (8 sets, daily range): BP systolic 107–144; BP diastolic 56–92; PULSE 76–86; RESP 18; TEMP 36.7–37.1; O2SAT 95–100
[2023-07-23] MEDS: Acetaminophen 500 MG Tablet PO ×3 (02:09→20:03)
[2023-07-23] MEDS: 0.9% Normal Saline (1000mL) 1,000 ML 125 ML IV ×4 (02:09→23:44)
[2023-07-23] MEDS: oxyCODONE 5 MG Tablet PO ×4 (02:10→20:36)
[2023-07-23] MEDS: Ibuprofen 400 MG Tablet PO ×2 (05:21→11:43)
[2023-07-23 08:00] LABS: Absolute Neutrophil Count 7.3 X10^3/uL (2.0-7.7); Basophil# 0.03 X10^3/uL; Basophil% 0.3 % (0-1); Eosinophil# 0.11 X10^3/uL; Hematocrit 25.5 % (37-47); Hemoglobin 9.1 g/dL (12.0-15.0); Lymphocyte % 19.6 % (19-41); Mean Corp Hgb Conc 35.7 g/dL (32-36); Mean Corpuscular Hgb 25.5 pg (27.0-32.0); Mean Corpuscular Volume 71.4 fL (81-99); Mean Platelet Vol. 9.3 fl (6.2-12.0); Monocyte# 1.51 X10^3/uL; Monocyte% 13.5 % (0-10); NRBC Flagged by Analyzer 1.1 % (0-5); Neutrophil % 65.2 % (47-70); POSITIVE DIFFERENTIAL YES; Platelet Count 417 K/mm3 (150-450); RBC Distribution Width CV 17.4 % (11.6-14.6); RBC Distribution Width SD 44.7 fl (35.1-43.9); Red Blood Count 3.57 M/mm3 (4.2-5.4); White Blood Count 11.2 K/mm3 (4.4-11.0)
[2023-07-23 08:03] LABS: Differential Indicated SCAN CRITERIA MET
[2023-07-23 08:25] LABS: Differential Comment SCANNED
--- NOTE | 2023-07-23 08:53 | PN.SURG_ITS ---
Subjective Subjective Patient reports she is having right upper quadrant pain. She says it is worse than before surgery. She denies any nausea or vomiting. She tolerated clear liquids last night. Objective Data Objective Data Vital Signs: Vital Signs Temp Pulse Resp BP Pulse Ox O2 Del Method O2 Flow Rate 98.1 F 83 18 144/92 H 100 Room Air 2 07/23/23 05:18 07/23/23 05:18 07/23/23 05:18 07/23/23 05:18 07/23/23 05:18 07/23/23 05:18 07/22/23 18:15 Oxygen Flow Rate (L/min) 2 Oxygen Delivery Method Room Air Weight: 209 lb 15.986 oz Body Mass Index (BMI) 34.9 Intake & Output: Intake and Output for Last 24 Hours 07/21/23 07/22/23 07/23/23 23:59 23:59 23:59 Intake Total 4461.67 / 4461.67 1735.42 / 1735.42 Output Total 900 / 900 Balance 4461.67 / 4461.67 835.42 / 835.42 Lab / Micro Data 07/23/23 07:44 07/22/23 00:20 Labs: Laboratory Results - last 24 hr 07/23/23 07:44: WBC 11.2 H, RBC 3.57 L, Hgb 9.1 L, Hct 25.5 L, MCV 71.4 L, MCH 25.5 L, MCHC 35.7, RDW Std Deviation 44.7 H, RDW Coeff of Ken 17.4 H, Plt Count 417, MPV 9.3, Immature Gran % (Auto) 0.400, Neut % (Auto) 65.2, Lymph % (Auto) 19.6, [place] % (Auto) 13.5 H, Eos % (Auto) 1.0, Baso % (Auto) 0.3, Absolute Neuts (auto) 7.3, Absolute Lymphs (auto) 2.20, Nucleated RBC % 1.1, Differential Comment SCANNED, Diff Path Review May Radiography Diagnostic Testing: Radiology Impression Cholangiogram 07/22/23 16:10 IMPRESSION: Suspect choledocholithiasis. Electronically Signed: Tenzin Horton MD at 17:37 EST , Physical Exam Const oriented x3 and no apparent distress Resp normal respiratory effort GI soft to palpation Palpation: tender RUQ Assessment & Plan Assessment/Plan (1) Cholelithiasis with choledocholithiasis: PLAN: The patient is stating she is still having right upper quadrant pain. Her LFTs have come down. I will advance her diet. I will probably keep her 1 more day as she is still having discomfort. If she is tolerating a diet and her LFTs stay down tomorrow I will discharge her back to her college tomorrow. Jaun Sim MD Pager: [facility] [address] [place] [address], [address] [place] [address] Office:
[2023-07-23 09:00] LABS: ALB/GLOB Ratio 0.9 RATIO (0.9-2.4); AST(SGOT) 34 U/L (15-37); Alanine Aminotransfer ALT/SGPT 78 U/L (13-56); Albumin, Serum 3.1 g/dL (3.2-5.0); Alkaline Phosphatase 90 U/L (45-117); Anion Gap 5 (5-15); BUN 3 mg/dL (7-18); BUN/Creat Ratio 4.7 RATIO (10-20); Calcium,Total 8.4 mg/dL (8.5-10.1); Chloride 113 mmol/L (98-107); Creatinine, Serum 0.64 mg/dL (0.55-1.02); EST Glomerular Filtration Rate 125 mL/min (>60); Est Glom Filt Rate - Afr Amer 151 mL/min (>60); Estimated Creatinine Clearance 158.71 ml/min; Globulin 3.6 g/dL (2.2-4.2); Glucose 87 mg/dL (74-106); Potassium 3.6 mmol/L (3.5-5.1); Protein, Total 6.7 g/dL (6.4-8.2); Sodium Level 140 mmol/L (136-145)
--- NOTE | 2023-07-23 12:38 | CASEMGMT ---
ANITHA THOMAS Assessment: Face to Face with pt for initial transition planning/care coordination assessment. ANITHA THOMAS introduced self and role at [facility], pt voices understanding and consents to assessment. Pt is A&O x4 and answers all questions appropriately at this time. Care providers, pharmacy, and demographics verified/updated. Admitting Dx: choledocholithiasis PCP:PCP in [place] where pt is from Specialists:Denies Preferred Pharmacy: [facility] Insurance: [employer] Prescription Benefit: yes LNOK: Mar Bonilla, mother; Marina Everett, grandmother Living Arrangements: Pt lives in a dorm with one flight of steps to enter. Pt reports she lives alone in the room. Pt is a [email or web address] student. Pt reports she is I in ADL's and denies concerns at home. Transportation: Pt does not drive. She uses the bus or friends to transport her. DME:cochlear impant HHC/SNF: Denies hx of Pt states no concerns with going home at time of dc. Pt states no further concerns/needs. CM to follow. Advised pt to ask CM if any further question/concerns/needs arise, voices understanding. Pt Goal: Home Plan: Home
--- NOTE | 2023-07-23 16:07 | PN.GI_ITS ---
Subjective Subjective Patient is status post ERCP and cholecystectomy postop day 1. She was having an some intermittent abdominal pain. She is tolerating a diet. She denies any chest pain or shortness of breath. Objective Data Objective Data Vital Signs: Vital Signs Temp Pulse Resp BP Pulse Ox O2 Del Method O2 Flow Rate 98.7 F 84 18 135/90 H 98 Room Air 2 07/23/23 14:44 07/23/23 14:44 07/23/23 14:44 07/23/23 14:44 07/23/23 14:44 07/23/23 14:44 07/22/23 18:15 Oxygen Flow Rate (L/min) 2 Oxygen Delivery Method Room Air Weight: 209 lb 15.986 oz Body Mass Index (BMI) 34.9 Intake & Output: Intake and Output for Last 24 Hours 07/21/23 07/22/23 07/23/23 23:59 23:59 23:59 Intake Total 4461.67 / 4461.67 2858.42 / 2858.42 Output Total 900 / 900 Balance 4461.67 / 4461.67 1958.42 / 1958.42 Lab / Micro Data 07/23/23 07:44 07/23/23 07:44 Labs: Laboratory Results - last 24 hr 07/23/23 07:44: WBC 11.2 H, RBC 3.57 L, Hgb 9.1 L, Hct 25.5 L, MCV 71.4 L, MCH 25.5 L, MCHC 35.7, RDW Std Deviation 44.7 H, RDW Coeff of Ken 17.4 H, Plt Count 417, MPV 9.3, Immature Gran % (Auto) 0.400, Neut % (Auto) 65.2, Lymph % (Auto) 19.6, [place] % (Auto) 13.5 H, Eos % (Auto) 1.0, Baso % (Auto) 0.3, Absolute Neuts (auto) 7.3, Absolute Lymphs (auto) 2.20, Nucleated RBC % 1.1, Differential Comment SCANNED, Diff Path Review October, Sodium 140, Potassium 3.6, Chloride 113 H, Carbon Dioxide 22.0, Anion Gap 5, BUN 3 L, Creatinine 0.64, Estim Creat Clear Calc 158.71, Est GFR (MDRD) Af Amer 151, Est GFR (MDRD) Non-Af 125, BUN/Creatinine Ratio 4.7 L, Glucose 87, Calcium 8.4 L, Total Bilirubin 1.10 H, AST 34, ALT 78 H, Alkaline Phosphatase 90, Total Protein 6.7, Albumin 3.1 L, Diane bulin 3.6, Albumin/Globulin Ratio 0.9 Radiography Diagnostic Testing: Radiology Impression Cholangiogram 07/22/23 16:10 IMPRESSION: Suspect choledocholithiasis. Electronically Signed: Tenzin Horton MD at 17:37 EST , Physical Exam Const oriented x3 and no apparent distress Resp normal respiratory effort GI soft to palpation Palpation: tender RUQ Assessment & Plan Assessment/Plan (1) Cholelithiasis with choledocholithiasis: (2) Cholelithiasis with acute cholecystitis with biliary obstruction: PLAN: Plan 23-year-old with PCOS and sickle cell anemia with cholecystitis and choledocholithiasis status post ERCP with sphincterotomy and stone removal and cholecystectomy. She is little bit more anemic and could be experiencing some problems regarding her sickle cell anemia. She is not showing any signs ofchest pain, tachypnea, hypoxia, dyspnea, cough, fever, or leukocytosis. I will order a reticulocyte count and increase her fluids up to 175 cc an hour. I will also add ketorolac. Charges/Coding Visit Charges Inpatient E&M: 25563 Subs Hosp L3
[2023-07-23 16:38] LABS: Platelet Count 411 K/mm3 (150-450); RET-HE 27.4 pg (30-35); Reticulocyte Count 4.47 % (0.5-1.5)
[2023-07-23] MEDS: Ketorolac 30 MG/ML Syringe IV ×2 (17:50→23:46)
[2023-07-24 03:06] VITALS: BP 112/65; PULSE 84; RESP 16; TEMP 36.8; O2SAT 95
[2023-07-24] MEDS: Acetaminophen 500 MG Tablet PO ×2 (03:11→09:28)
[2023-07-24] MEDS: 0.9% Saline Lock 10 ML Syringe IV ×2 (03:12→05:34)
[2023-07-24] MEDS: Ketorolac 30 MG/ML Syringe IV (05:33)
[2023-07-24 09:07] LABS: Absolute Lymphocyte Count 2.71 X10^3/uL (0.83-4.51); Absolute Neutrophil Count 8.3 X10^3/uL (2.0-7.7); Basophil# 0.04 X10^3/uL; Basophil% 0.3 % (0-1); Eosinophil# 0.06 X10^3/uL; Eosinophils% 0.5 % (0-5); Hematocrit 25.6 % (37-47); Hemoglobin 9.1 g/dL (12.0-15.0); Lymphocyte # 2.71 X10^3/ul (0.83-4.51); Mean Corp Hgb Conc 35.5 g/dL (32-36); Mean Corpuscular Hgb 25.7 pg (27.0-32.0); Mean Corpuscular Volume 72.3 fL (81-99); Monocyte# 1.13 X10^3/uL; Monocyte% 9.2 % (0-10); NRBC Flagged by Analyzer 1.6 % (0-5); Neutrophil # 8.32 X10^3/uL (2.7-7.7); Neutrophil % 67.7 % (47-70); Platelet Count 413 K/mm3 (150-450); RBC Distribution Width CV 17.4 % (11.6-14.6); RBC Distribution Width SD 45.4 fl (35.1-43.9); Red Blood Count 3.54 M/mm3 (4.2-5.4); White Blood Count 12.3 K/mm3 (4.4-11.0)
[2023-07-24 09:23] LABS: ALB/GLOB Ratio 0.8 RATIO (0.9-2.4); AST(SGOT) 29 U/L (15-37); Alanine Aminotransfer ALT/SGPT 64 U/L (13-56); Albumin, Serum 3.1 g/dL (3.2-5.0); Alkaline Phosphatase 87 U/L (45-117); Anion Gap 4 (5-15); BUN 4 mg/dL (7-18); Calcium,Total 8.4 mg/dL (8.5-10.1); Chloride 112 mmol/L (98-107); Creatinine, Serum 0.67 mg/dL (0.55-1.02); EST Glomerular Filtration Rate 118 mL/min (>60); Est Glom Filt Rate - Afr Amer 143 mL/min (>60); Globulin 3.7 g/dL (2.2-4.2); Glucose 98 mg/dL (74-106); Potassium 3.9 mmol/L (3.5-5.1); Protein, Total 6.8 g/dL (6.4-8.2); Sodium Level 139 mmol/L (136-145)
--- NOTE | 2023-07-24 09:43 | PCM.PN.SRG ---
Subjective Subjective Patient is doing well with no complaints Objective Data Objective Data Vital Signs: Vital Signs Temp Pulse Resp BP Pulse Ox O2 Del Method O2 Flow Rate 98.2 F 84 16 112/65 95 Room Air 2 07/24/23 03:06 07/24/23 03:06 07/24/23 03:06 07/24/23 03:06 07/24/23 03:06 07/24/23 03:06 07/22/23 18:15 Oxygen Flow Rate (L/min) 2 Oxygen Delivery Method Room Air Weight: 209 lb 15.986 oz Body Mass Index (BMI) 34.9 Intake & Output: Intake and Output for Last 24 Hours 07/22/23 07/23/23 07/24/23 23:59 23:59 23:59 Intake Total 4461.67 / 4461.67 5755.00 / 5755.00 1000 / 1000 Output Total 900 / 900 Balance 4461.67 / 4461.67 4855.00 / 4855.00 1000 / 1000 Lab / Micro Data 07/24/23 09:00 07/24/23 09:00 Labs: Laboratory Results - last 24 hr 07/23/23 07:44: Retic Count 4.47 H, Immature Retic Fraction 22.80 H, Retic Hgb Equivalent 27.4 L 07/24/23 09:00: WBC 12.3 H, RBC 3.54 L, Hgb 9.1 L, Hct 25.6 L, MCV 72.3 L, MCH 25.7 L, MCHC 35.5, RDW Std Deviation 45.4 H, RDW Coeff of Ken 17.4 H, Plt Count 413, MPV 9.0, Immature Gran % (Auto) 0.300, Neut % (Auto) 67.7, Lymph % (Auto) 22.0, [place] % (Auto) 9.2, Eos % (Auto) 0.5, Baso % (Auto) 0.3, Absolute Neuts (auto) 8.3 H, Absolute Lymphs (auto) 2.71, Nucleated RBC % 1.6, Sodium 139, Potassium 3.9, Chloride 112 H, Carbon Dioxide 23.0, Anion Gap 4 L, BUN 4 L, Creatinine 0.67, Estim Creat Clear Calc 151.60, Est GFR (MDRD) Af Amer 143, Est GFR (MDRD) Non-Af 118, BUN/Creatinine Ratio 6.0 L, Glucose 98, Calcium 8.4 L, Total Bilirubin 1.40 H, AST 29, ALT 64 H, Alkaline Phosphatase 87, Total Protein 6.8, Albumin 3.1 L, Globulin 3.7, Albumin/Globulin Ratio 0.8 L Physical Exam Const oriented x3 and no apparent distress Resp normal respiratory effort GI soft to palpation and non-tender Assessment & Plan Assessment/Plan (1) Cholelithiasis with choledocholithiasis: PLAN: Patient reports she is feeling much better today. She will be advanced to regular diet and if she tolerates this I will discharge her later today. Jaun Sim MD Pager: [facility] [address] [place] [address], [address] [place] [phone] Office:
--- NOTE | 2023-07-24 09:44 | DS.PCM_ITS ---
Providers Date of Admission: 07/22/23 Primary Care Physician: Jessie Primary Care Phys Consultations 07/22/23 11:02 Consult: Gastroenterology Routine Consulting Provider: Suzie Gastroenterology Reason for Consult: choledocholithiasis EMERGENT Consult: No MD Notified: Yes Date Notified: 07/22/23 Time Notified: 11:02 Method of Notification: Verbal Reason For Visit: CHOLEDOCHOLITHIASIS Diagnosis Discharge Diagnosis (1) Cholelithiasis with choledocholithiasis: Status: Acute Code(s): K80.70 - Calculus of gallbladder and bile duct without cholecystitis without obstruction Plan: Patient reports she is feeling much better today. She will be advanced to regul ar diet and if she tolerates this I will discharge her later today. Jaun Sim MD Pager: [facility] [address] [place] [address], [address] [place] [phone] Office: Medications at Discharge Home Medications Secure 1 tab PO DAILY control 03/01/23 acetaminophen 500 mg tablet 500 mg PO Q6H PRN PRN Pain Score 1-10 #0 tabs 07/24/23 oxycodone 5 mg tablet 5 mg PO Q6H PRN PRN Pain Score 6-10 5 days #20 tabs 07/24/23 Hospital Course Operations cholecystecomy and ERCP Summary of Care Provided Hospital Course: The patient was admitted with elevated LFTs. She was taken for ERCP and the stone was removed and stent was placed and then she was taken for laparoscopic cholecystectomy. The following day she was still having pain so she was kept here. The day after this her LFTs were downtrending and she was feeling much better so she was be discharged home. She will follow-up with Dr. Gonzales for stent removal. Weight / BMI Weight Weight: 209 lb 15.986 oz Body Mass Index (BMI) 34.9 ABG / Lab / Microbiology Data 07/24/23 09:00 07/24/23 09:00 Laboratory: Laboratory Results - last 24 hr 07/23/23 07:44: Retic Count 4.47 H, Immature Retic Fraction 22.80 H, Retic Hgb Equivalent 27.4 L 07/24/23 09:00: WBC 12.3 H, RBC 3.54 L, Hgb 9.1 L, Hct 25.6 L, MCV 72.3 L, MCH 25.7 L, MCHC 35.5, RDW Std Deviation 45.4 H, RDW Coeff of Ken 17.4 H, Plt Count 413, MPV 9.0, Immature Gran % (Auto) 0.300, Neut % (Auto) 67.7, Lymph % (Auto) 22.0, [place] % (Auto) 9.2, Eos % (Auto) 0.5, Baso % (Auto) 0.3, Absolute Neuts (auto) 8.3 H, Absolute Lymphs (auto) 2.71, Nucleated RBC % 1.6, Sodium 139, Potassium 3.9, Chloride 112 H, Carbon Dioxide 23.0, Anion Gap 4 L, BUN 4 L, Creatinine 0.67, Estim Creat Clear Calc 151.60, Est GFR (MDRD) Af Amer 143, Est GFR (MDRD) Non-Af 118, BUN/Creatinine Ratio 6.0 L, Glucose 98, Calcium 8.4 L, Total Bilirubin 1.40 H, AST 29, ALT 64 H, Alkaline Phosphatase 87, Total Protein 6.8, Albumin 3.1 L, Globulin 3.7, Albumin/Globulin Ratio 0.8 L D/C Instructions Discharge Diet: Light diet - advance as tolerated Discharge Activity: May Not Drive (for 2-3 days or while taking narcotic pain medications.) and - (Do not drive, work heavy equipment or sign legal documents for 24 hours.) May shower in (days): 1 Lifting Restrictions: 20 lbs for 2 weeks Additional Activity Instructions: Pain medication may cause nausea. You should typically eat light foods as you take your pain medications. Pain medication may also cause constipation. If this is a problem for you, please discuss with your doctor. Call your doctor if your incision/area has: Continuous Slow Oozing, Sudden Increased Bleeding, Increased Pain/ Swelling, Increased Redness and Foul Smelling Discharge Call your doctor if you observe: Fever of 101 or Higher Suture Line Care: Avoid Pulling/Pushing and Avoid Pinching/Bending Remove Dressing in: 2 days (Remove clear bandages in 2 days, remove Steri-Strips in 7 to 10 days.) Additional Dressing/Incision Instructions: Leave operative bandaids on for 2 day s. When you remove dressing, leave Steri-Strips on until your follow-up appointment, or until the Steri-Strips fall off on their own. Additional Instructions: Follow-up with Dr. Gonzales to schedule stent removal Please Follow Up With: Zeferino Hemphill MD When: Please call to schedule 2 week follow up appointment. [phone] Meaningful Use Info Meaningful Use Diagnoses (Choose all that apply): None applicable Discharge Plan Admission Admit Date/Time: 07/22/23 08:04 Attending Provider: Zeferino Hemphill Primary Care Provider: Care Physician,Jessie Primary Instructions Additional Instructions / Restrictions: Alternate ibuprofen and Tylenol for pain, oxycodone for breakthrough. Discharge Orders/Prescriptions Prescriptions: New acetaminophen 500 mg Tablet 500 mg PO Q6H PRN PRN (Reason: Pain Score 1-10) Qty: 0 0RF oxycodone 5 mg Tablet 5 mg PO Q6H PRN PRN (Reason: Pain Score 6-10) 5 Days Qty: 20 0RF Continued Secure 1 tab PO DAILY Rx Instructions: Oral control that the patient gets from her [place]. Discontinued hydrocodone-acetaminophen [hydrocodone-acetaminophen] 5-325 mg tablet 1 tab PO Q6H PRN PRN (Reason: Pain) 3 Days Qty: 12 0RF Referrals / Follow Up: Care Physician,No Primary [Primary Care Provider] - NOT,DEFINED [Non-Staff] - Disposition Disposition (needs filled in before D/C Order can be placed): Home, Self Care
[2023-07-24 09:49] VITALS: BP 138/83; PULSE 84; RESP 18; TEMP 37.2; O2SAT 100
--- NOTE | 2023-07-24 12:34 | NURSING ---
[facility] security picking up pt at main entrance [facility] called an updated w/d/c time and d/c instruction papers w/next dose due and extra drsgs x4 for the umbilicus that we have changed pRN if wet-they voiced understanding
[2023-07-26 09:57] LABS: Pathologist Review Reviewed
== END 2023-07-24 12:48 | disposition home or self-care (01) | DRG 419 ==
LOC: ED 07-22 08:31 → MS3 07-22 08:33
PROVIDERS: Internal Medicine Gastroenterology; Surgery; Admitting Provider Surgery; Emergency Provider Emergency Medicine; Visit Provider Surgery
PROC: 0FT44ZZ Resection of Gallbladder, Percutaneous Endoscopic Approach (ICD-10-PCS; CPT 47610; principal; 2023-07-22 13:30)
PROC: 0FC98ZZ Extirpation of Matter from Common Bile Duct, Via Natural or Artificial Opening Endoscopic (ICD-10-PCS; CPT 43260; principal; 2023-07-22 15:00)
DX: K80.63 Calculus of gallbladder and bile duct with acute cholecystitis with obstruction (principal); D57.3 Sickle-cell trait
CPT/HCPCS: 36415; 74177; 74300; 74330; 76000; 76705; 80048; 80053; 80076; 81001; 83690; 84703; 85025; 85045; 88304; 93005; 99284; J7030; J7050; J7120; Q9967; A4216; C1769; J2405

== ENCOUNTER → 2023-07-28 | Outpatient (CLI) | payer OTHER, SELFPAY ==
[2023-07-28 14:10] LABS: Absolute Lymphocyte Count 3.18 X10^3/uL (0.83-4.51); Absolute Neutrophil Count 6.1 X10^3/uL (2.0-7.7); Basophil# 0.04 X10^3/uL; Basophil% 0.4 % (0-1); Eosinophil# 0.35 X10^3/uL; Eosinophils% 3.3 % (0-5); Hematocrit 26.7 % (37-47); Hemoglobin 9.7 g/dL (12.0-15.0); Lymphocyte # 3.18 X10^3/ul (0.83-4.51); Lymphocyte % 29.7 % (19-41); Mean Corp Hgb Conc 36.3 g/dL (32-36); Mean Corpuscular Hgb 26.4 pg (27.0-32.0); Mean Corpuscular Volume 72.6 fL (81-99); Monocyte# 1.02 X10^3/uL; Monocyte% 9.5 % (0-10); NRBC Flagged by Analyzer 4.4 % (0-5); Neutrophil # 6.08 X10^3/uL (2.7-7.7); Neutrophil % 56.7 % (47-70); Platelet Count 449 K/mm3 (150-450); RBC Distribution Width SD 47.3 fl (35.1-43.9); Red Blood Count 3.68 M/mm3 (4.2-5.4); White Blood Count 10.7 K/mm3 (4.4-11.0)
[2023-07-28 14:36] LABS: ALB/GLOB Ratio 0.8 RATIO (0.9-2.4); AST(SGOT) 39 U/L (15-37); Alanine Aminotransfer ALT/SGPT 137 U/L (13-56); Albumin, Serum 3.6 g/dL (3.2-5.0); Alkaline Phosphatase 152 U/L (45-117); Anion Gap 4 (5-15); BUN 4 mg/dL (7-18); BUN/Creat Ratio 5.6 RATIO (10-20); Chloride 108 mmol/L (98-107); Creatinine, Serum 0.72 mg/dL (0.55-1.02); EST Glomerular Filtration Rate 109 mL/min (>60); Est Glom Filt Rate - Afr Amer 131 mL/min (>60); Globulin 4.3 g/dL (2.2-4.2); Glucose 81 mg/dL (74-106); Potassium 3.8 mmol/L (3.5-5.1); Protein, Total 7.9 g/dL (6.4-8.2); Sodium Level 140 mmol/L (136-145)
== END | disposition home or self-care (01) ==
PROVIDERS: Referring Provider Physician Assistant; Visit Provider Physician Assistant
DX: R10.9 Unspecified abdominal pain (principal)
CPT/HCPCS: 36415; 80053; 85025

== ENCOUNTER 2023-09-08 10:07 | Day surgery (SDC) | payer OTHER, SELFPAY ==
[2023-09-08] VITALS (8 sets, daily range): BP systolic 98–133; BP diastolic 59–82; PULSE 57–98; RESP 16–18; TEMP 36.1–36.6; O2SAT 98–100; BMI 35.2
[2023-09-08] MEDS: Lactated Ringers 1,000 ML 15 ML IV (10:42)
[2023-09-08 10:57] LABS: Internal QC Validated? YES +Cl - CLEAR BKGD; Pregnancy, Urine Negative Negative; Record Kit Lot#,Urine Preg HCG0000718086
--- NOTE | 2023-09-08 10:59 | HP.PCM_ITS ---
History and Physical Date of Admission: 09/08/23 VIANEY DOLL is a 23 F who presents to the office today for *[facility] hospitalization .08.13-07.24.23 for management of cholelithiasis with choledocholithiasis. ? ERCP 07.22.23 entire main bile duct dilated with stone causing obstruction, removed via sphincterotomy/balloon extraction; temporary stent placed. ? Surgery 07.22.23 laparoscopic cholecystectomy OV 08.19.23 After cholecystectomy. denies any complaints of discomfort. Bile duct stent still in place. ROS Const Constitutional: No fatigue, fever(s), frequent falls, headache(s), weakness or weight change ENT ENT: No headache(s) or difficulty swallowing Cardio Cardiology: No leg pain with exertion Gastro GI: No abdominal pain, bloating, change in bowel habits, constipation, diarrhea, heartburn, difficulty swallowing, excessive flatus, Vomiting blood/hematemesis, Blood in stool, nausea/dyspepsia or vomiting Musc Musculoskeletal: No joint pain, back pain, joint swelling, muscle cramps, muscle weakness, numbness, stiffness, tingling, Arthritis, sciatica, restless legs, leg pain at night or leg pain with exertion Skin Skin: No dry skin, lesions, itchy eyes or rash Neuro Neurology: No behavioral changes, unsteady gait/balance, weakness, frequent falls, headache(s), numbness, tingling, restless legs, tremor(s), Increased tone in limbs, paralysis or seizures Psych Psychiatric: No anxiety, No behavioral changes, No depression, No paranoia, No Compulsive Behavior, No hyperactivity, No inattentiveness, No obsessions/compulsions, No Temper Tantrums and No suicidal ideation Endo Endocrine: No fatigue or weight change Aller/Imm Allergy/Immunologic: No itchy eyes Valentín/Lymp Hematologic/Lymphatic: No easy bleeding or easy bruising Exam Const General: cooperative and comfortable Nutritional Appearance: average body habitus and well nourished HENMT Head: normal to inspection Ears: hearing grossly normal bilaterally Nose: external nose normal Face and sinus: normal facial exam Mouth: oral mucosae normal Throat: posterior oropharynx normal Eyes General: appearance normal, both eyes and all related structures Neck Neck: normal visual inspection Chest Chest palpation & inspection: normal inspection of the chest and normal palpation of entire chest wall Resp Effort & Inspection: normal respiratory effort Auscultation: Bilateral: Clear to Auscultation Cardio Palpation: normal PMI Rate: regular rate Rhythm: regular rhythm GI Inspection: normal to inspection Auscultation: normal bowel sounds Percussion: normal to percussion Palpation: no hepatosplenomegaly Skin General: no rashes or lesions noted Neuro General: patient alert Extrem General: normal to inspection Psych Affect: normal affect Quality Reporting Tobacco Screening ([facility] 138) Smoking Status: Never smoker Assessment and Plan Assessment and Plan (1) S/P laparoscopic cholecystectomy: Status: Acute (2) Choledocholithiasis with obstruction: Status: Acute Plan: 23-year-old with sickle cell disease who presented to the hospital with acute o nset of right upper quadrant pain and discovered to have cholestatic hepatitis with jaundice secondary to choledocholithiasis. She underwent stone removal and dilation of biliary stricture secondary to chronic choledocholithiasis. She had stent placed in the common bile duct. We will schedule her for repeat ERCP with stent removal and repeat occlusion cholangiogram. I have examined the patient and the H&P has been reviewed. There are no clinical changes since date of exam.
--- NOTE | 2023-09-08 11:20 | RAD_ITS ---
STUDY: ERCP. REASON FOR EXAM: Female, 23 years old. Right upper quadrant pain. FLUOROSCOPY TIME (if supplied): ( 87.5 seconds ) minutes/seconds. 33.67 mGy. TECHNIQUE: An ERCP was performed by the agriculture instructor. Fluoroscopic services were provided. COMPARISON: None. FINDINGS: Intraoperative fluoroscopic services provided for ERCP. RAD/ERCP Biliary/Pancreas IMPRESSION: Intraoperative fluoroscopic services provided for ERCP. Electronically Signed: Rene Gutierrez MD at 12:11 EDT ,
--- NOTE | 2023-09-08 11:49 | OP.ERCP_ITS ---
Patient Name: Joyce Bonilla Procedure Date: 09/08/2023 11:00 AM Date of : 2000 Age: 23 Procedure: ERCP Indications: Stent removal Providers: Edouard Gonzales DO Medicines: Monitored Anesthesia Care Patient Profile: This is a 23 year old female. Refer to note in patient chart for documentation of history and physical. Patient has symptoms. Her most recent ERCP for stent and ERCP for stone removal. She is status post laparoscopic cholecystectomy within the past three months. Complications: No immediate complications. Procedure: Pre-Anesthesia Assessment: - Prior to the procedure, a History and Physical was performed, and patient medications and allergies were reviewed. The patient is competent. The risks and benefits of the procedure and the sedation options and risks were discussed with the patient. All questions were answered and informed consent was obtained. Patient identification and proposed procedure were verified by the physician in the pre-procedure area. Mental Status Examination: alert and oriented. Airway Examination: normal oropharyngeal airway and neck mobility. Respiratory Examination: clear to auscultation. CV Examination: normal. Prophylactic Antibiotics: The patient does not require prophylactic antibiotics. Prior Anticoagulants: The patient has taken no anticoagulant or antiplatelet agents. ASA Grade Assessment: II - A patient with mild systemic disease. After reviewing the risks and benefits, the patient was deemed in satisfactory condition to undergo the procedure. The anesthesia plan was to use monitored anesthesia care (MAC). Immediately prior to administration of medications, the patient was re-assessed for adequacy to receive sedatives. The heart rate, respiratory rate, oxygen saturations, blood pressure, adequacy of pulmonary ventilation, and response to care were monitored throughout the procedure. The physical status of the patient was re-assessed after the procedure. After obtaining informed consent, the scope was passed under direct vision. Throughout the procedure, the patient's blood pressure, pulse, and oxygen saturations were monitored continuously. The Duodenoscope was introduced through the mouth, and advanced to the duodenum and used to inject contrast into the bile duct and ventral pancreatic duct. The ERCP was accomplished without difficulty. The patient tolerated the procedure well. Scope In: 11:29:46 AM Scope Out: 11:37:47 AM Total Procedure Duration Time 0 hours 8 minutes 1 second Findings: The sql architect film was normal. The esophagus was successfully intubated under direct vision. The scope was advanced to a normal major papilla in the descending duodenum without detailed examination of the pharynx, larynx and associated structures, and upper GI tract. The upper GI tract was grossly normal. The bile duct was deeply cannulated with the short-nosed traction sphincterotome. Contrast was injected. I personally interpreted the bile duct and pancreatic duct images. There was brisk flow of contrast through the ducts. Image quality was excellent. Contrast extended to the entire biliary tree. Opacification of the entire biliary tree except for the cystic duct and gallbladder was successful. The maximum diameter of the ducts was 10 mm. Choledocholithiasis was found in a nondilated duct. Placement of a 0.035 inch x 260 cm angled Hydra Jagwire into the biliary tree was attempted. This passed successfully. A 5 mm biliary sphincterotomy was made with a traction (standard) sphincterotome using ERBE electrocautery. There was no post-sphincterotomy bleeding. The biliary tree was swept with a 12 mm balloon starting at the bifurcation. Two stones were removed. All stones remained. One stent was removed from the biliary tree using a snare. Impression: - Choledocholithiasis was found. Removal was not accomplished; no stent was inserted. - A biliary sphincterotomy was performed. - The biliary tree was swept. - One stent was removed from the biliary tree. Procedure Code(s): --- Professional --- 82606, Endoscopic retrograde cholangiopancreatography (ERCP); with removal of foreign body(s) or stent(s) from biliary/pancreatic duct(s) 39573, Endoscopic retrograde cholangiopancreatography (ERCP); with removal of calculi/debris from biliary/pancreatic duct(s) 82648, Endoscopic retrograde cholangiopancreatography (ERCP); with sphincterotomy/papillotomy 62490, 26, Combined endoscopic catheterization of the biliary and pancreatic ductal systems, radiological supervision and interpretation CPT copyright 2021 [employer]. All rights reserved. The codes documented in this report are preliminary and upon porter baggage review may be revised to meet current compliance requirements. Edouard Gonzales DO 09/08/2023 11:49:36 AM This report has been signed electronically. Number of Addenda: 0 Note Initiated On: 09/08/2023 11:00 AM
--- NOTE | 2023-09-08 11:50 | OP.CCLET_ITS ---
09/08/2023 No Primary Care Physician Re : ERCP procedure for Joyce Bonilla Dear Care Physician This procedure was performed on August. My impressions and recommendations are as follows: Impressions : - Choledocholithiasis was found. Removal was not accomplished; no stent was inserted. - A biliary sphincterotomy was performed. - The biliary tree was swept. - One stent was removed from the biliary tree. Recommendations : My findings are described in the full procedure note, which is enclosed. If I can be of further assistance, please feel free to contact me at . Sincerely, Edouard Gonzales, 09/08/2023 11:49:36 AM This report has been signed electronically.
== END 2023-09-08 13:01 | disposition home or self-care (01) ==
LOC: EN 10:10 → AC 10:12
PROVIDERS: Anesthesiology; Visit Provider Internal Medicine Gastroenterology
PROC: (CPT 43260; principal; 2023-09-08 09:55)
DX: K80.51 Calculus of bile duct without cholangitis or cholecystitis with obstruction (principal); Z90.49 Acquired absence of other specified parts of digestive tract
CPT/HCPCS: 43262; 43275; 43264; 74330; 76000; 81025; J7120; J2405